=== PATIENT | female | born 1940 | race Two or more races ===

== ENCOUNTER 2018-11-21 13:22 | Inpatient (IN) | payer MEDICARE, BC ==
[~2018-11-21] VITALS: Ht 152.4 cm; Wt 68.6 kg
[~2018-11-21 13:22] MED LIST: HYDR-3326 PO; LEVO100T PO; MEMA1CAP3 PO; OMEG1CAP PO
[2018-11-21] MEDS ORDERED: LEVO75TA PO (13:41)
[2018-11-21] MEDS ORDERED: IV NORMAL SALINE 1000 ML BAG IV ONE ×2 (13:45)
[2018-11-21 13:51] LABS: BASOPHILS # (AUTO) 0.1 K/uL (0.0-8.0); BASOPHILS % (AUTO) 0.4 % (0.0-2.0); HEMOGLOBIN 15.8 g/dL (10.9-14.3); LYMPHOCYTES # (AUTO) 0.5 K/uL (20.0-40.0); LYMPHOCYTES % (AUTO) 2.2 % (20.5-51.5); MEAN CORPUSCULAR HEMOGLOBIN 28.8 uug (24.7-32.8); MEAN CORPUSCULAR HGB CONC 34 g/dL (32.3-35.6); MEAN CORPUSCULAR VOLUME 85.6 fL (75.5-95.3); MONOCYTES # (AUTO) 0.7 K/uL (2.0-10.0); MONOCYTES % (AUTO) 2.9 % (0.0-11.0); NEUTROPHILS # (AUTO) 23.5 K/uL (1.8-8.9); NEUTROPHILS % (AUTO) 94.5 % (38.5-71.5); PLATELET COUNT (AUTO) 176 K/uL (179-408); RED BLOOD CELL COUNT(AUTO) 5.49 MIL/uL (3.63-4.92); WHITE BLOOD COUNT (AUTO) 24.9 K/uL (3.8-11.8)
[2018-11-21 14:00] LABS: CARBON DIOXIDE 23 mmol/L (21-32); CHLORIDE 105 mmol/L (98-107); CREATININE 0.9 mg/dL (0.6-1.3); GLUCOSE 190 mg/dL (74-106); POTASSIUM 3.2 mmol/L (3.5-5.1); UREA NITROGEN, BLOOD 18 mg/dL (7-18)
[2018-11-21 14:05] LABS: ALANINE AMINOTRANSFERASE 29 U/L (14-59); ALKALINE PHOSPHATASE 76 U/L (50-136); ASPARTATE AMINOTRANSFERASE 30 U/L (15-37); BILIRUBIN,DIRECT 0.3 mg/dL (0.0-0.2); BILIRUBIN,TOTAL 1.5 mg/dL (0.2-1.0); TOTAL PROTEIN, SERUM 7.3 g/dL (6.4-8.2)
[2018-11-21 14:06] LABS: *BILIRUBIN,URIN 1+ (NEGATIVE); *CLARITY,URINE CLEAR (CLEAR); *COLOR,URINE DARK YELLOW (YELLOW); *KETONES,URINE 2+ (NEGATIVE); *UROBILINOGEN,URINE 0.2 E.U./dl (NORMAL); LEUKOCYTE ESTERASE ,URINE NEGATIVE (NEGATIVE); NITRITE, URINE POSITIVE (NEGATIVE); PH,URINE 5.5 (5.0-8.0); UGLUCOSE NEGATIVE (NEGATIVE)
[2018-11-21 14:07] LABS: *BLOOD, URINE TRACE LYSED (NEGATIVE)
--- NOTE | 2018-11-21 14:07 | NUR ---
IV inserted, grover catheter inserted and vitals recorded. Patient responsive to painful stimuli. Patient being taken to CT at this time.
[2018-11-21 14:13] LABS: BACTERIA,URINE MODERATE /HPF (NONE SEEN); MUCUS,URINE FEW /LPF (0-FEW); SQUAMOUS EPITHELIAL CELL,UR FEW /HPF (NONE SEEN); WBC,URINE 0-3 /HPF (0-3)
[2018-11-21 14:14] LABS: URINE AMORPHOUS URATE FEW /HPF
[2018-11-21] MEDS ORDERED: CEFTRIAXONE 1 G in IV DEXTROSE 5% 50 ML IV ONE (14:15)
--- NOTE | 2018-11-21 14:19 | NUR ---
Lactic acid report received and Dr. rolon. Critical troponing received by Md. Will continue with care plan
[2018-11-21] MEDS ORDERED: CEFTRIAXONE 1 G VIAL ONE (14:26)
[2018-11-21 14:30] LABS: THYROID STIMULATING HORMONE 1.005 mIU/mL (0.358-3.740)
[2018-11-21] MEDS ORDERED: QUET50TA PO (14:41)
[2018-11-21] MEDS ORDERED: CHOL200078 PO (14:41)
[2018-11-21] MEDS ORDERED: ASPIRIN 300 MG RECTAL SUPP RC ONE ×2 (14:45→14:47)
--- NOTE | 2018-11-21 14:50 | NUR ---
At this time patient noted to be seizing, immediately notifed and verbal orders for ativen 1mg ivp given as orders. Pt's family at bedside.
[2018-11-21] MEDS ORDERED: LORAZEPAM 2 MG/1 ML VIAL ONE (14:56)
[2018-11-21] MEDS ORDERED: PIPERACILLIN SODIUM/TAZOBACTAM 3.375 G in IV DEXTROSE 5% 50 ML IV ONE (15:00)
[2018-11-21] MEDS ORDERED: LORAZEPAM 2 MG/1 ML VIAL IV ONE (15:00)
--- NOTE | 2018-11-21 15:00 | NUR ---
hr 67, 100% saturation 2L. sbp 147/50
--- NOTE | 2018-11-21 15:01 | NUR ---
A call to [employer]. Message to Dr. Sierra on behalf of Dr. Obrien.
[2018-11-21] MEDS ORDERED: PIPERACILLIN/TAZOBACTAM/D5W 50 ML IV ONE (15:14)
--- NOTE | 2018-11-21 15:26 | NUR ---
2nd call for BDA message left.
--- NOTE | 2018-11-21 15:32 | NUR ---
HR 89, sat 99% 2L nc, rr18,115/71.
--- NOTE | 2018-11-21 15:57 | NUR ---
Third call made to [facility] group for admission.
--- NOTE | 2018-11-21 16:12 | NUR ---
a call back from [employer] group and DR. Obrien endorse care to Dr. Baldwin.
[2018-11-21] MEDS ORDERED: IV NS 1000 ML 1,000 ML IV PRN (16:13)
[2018-11-21] MEDS ORDERED: ONDANSETRON 4 MG/2 ML VIAL IV PRN (16:15)
[2018-11-21] MEDS ORDERED: ACETAMINOPHEN 325 MG TABLET PO PRN (16:15)
[2018-11-21] MEDS ORDERED: MAGNESIUM HYDROXIDE 30 ML LIQUID UDC PO PRN (16:15)
[2018-11-21] MEDS ORDERED: PIPERACILLIN SODIUM/TAZOBACTAM 4.5 G in IV DEXTROSE 5% 50 ML IV SCH (16:15)
[2018-11-21] MEDS ORDERED: LEVETIRACETAM IV 1,000 MG in IV DEXTROSE 5% 100 ML IV ONE (16:15)
--- NOTE | 2018-11-21 16:24 | NUR ---
report called to Charge nurse Trent. Patient will be transferred to [facility].
--- NOTE | 2018-11-21 16:35 | NUR ---
Patient taken up to room 304 via gurney, vitals stable hr 75, saturation of 97% on 2LNC, sbp of 119/70. grover catheter to gravity, Iv line to RAC patent and infusing with 1L NS to be completed and by floor nurse also endorse reassessment for sepsis. Since ER MD wanted fluids to run slowly.
--- NOTE | 2018-11-21 17:00 | NUR ---
Pt received from ER.Pt remains responsive to stimuli.No s/s of pain,discomfort noted.No seizure activity noted.Spoke with regarding elevated troponin,lactic acid.No new orders .Will continue to monitor.
[2018-11-21 17:03] VITALS: BP 112/58
--- NOTE | 2018-11-21 19:34 | NUR ---
Spoke with regarding Keppra 1gm order from ER.New orders received .
--- NOTE | 2018-11-21 19:45 | NUR ---
Received pt resting in bed, aphasic, withdraws to painful stimuli. Eyes reactive to light. Family members at bedside. Pt on 2L NC saturating at 98%. No acute distress noted. Pt has episodes of hyperventilation. Tele monitor noted to be SR with HR 68. F/C in place. IV intact and patent running NS at 75cc/hr. Assessment completed. Aspiration and seizure precautions in place. Continue to monitor.
[2018-11-21 19:49] VITALS: BP 129/51
--- NOTE | 2018-11-21 20:00 | NUR ---
KEPRRA IV given.
--- NOTE | 2018-11-21 20:00 | NUR ---
Dr Ewing came to see and evaluate pt. Full report given. MD discussed plan of care with family members, family members verbalized understanding. New orders received.
--- NOTE | 2018-11-21 20:30 | NUR ---
Pt Temp 100.7 axillary at this time. Removed thick blanket and placed thin blanket over lower extremities. Will recheck temp.
[2018-11-21] MEDS: IV NS 1000 ML 1,000 ML IV PRN ×2 (21:40→23:09)
--- NOTE | 2018-11-21 21:40 | NUR ---
Pt temp now 98.2 F axillary. Will continue to monitor VS.
--- NOTE | 2018-11-21 22:00 | NUR ---
PICC LINE RN at bedside.
[2018-11-21] MEDS ORDERED: HEPARIN SODIUM,PORCINE 10,000 UNITS/10 ML VIAL IVP ONE (22:30)
[2018-11-21] MEDS ORDERED: HEPARIN SODIUM,PORCINE 5,000 UNITS/ML VIAL ONE (22:44)
[2018-11-21] MEDS: PIPERACILLIN/TAZOBACTAM/D5W 3.375 G in PREMIXED 1 EACH IV SCH (22:51)
[2018-11-21] MEDS: HEPARIN/D5W DRIP 500 ML IV PRN (23:01)
[2018-11-22] VITALS (7 sets, daily range): BP systolic 123–146; BP diastolic 42–71
[2018-11-22] MEDS: PIPERACILLIN/TAZOBACTAM/D5W 3.375 G in PREMIXED 1 EACH IV SCH ×3 (06:01→21:06)
[2018-11-22 06:03] LABS: BASOPHILS % (AUTO) 0.2 % (0.0-2.0); HEMATOCRIT 39.1 % (31.2-41.9); HEMOGLOBIN 13.7 g/dL (10.9-14.3); LYMPHOCYTES # (AUTO) 0.9 K/uL (20.0-40.0); LYMPHOCYTES % (AUTO) 4.2 % (20.5-51.5); MEAN CORPUSCULAR HEMOGLOBIN 29.4 uug (24.7-32.8); MEAN CORPUSCULAR HGB CONC 35 g/dL (32.3-35.6); MEAN CORPUSCULAR VOLUME 84.1 fL (75.5-95.3); MONOCYTES # (AUTO) 1.2 K/uL (2.0-10.0); MONOCYTES % (AUTO) 6.1 % (0.0-11.0); NEUTROPHILS % (AUTO) 89.5 % (38.5-71.5); PLATELET COUNT (AUTO) 114 K/uL (179-408); RED BLOOD CELL COUNT(AUTO) 4.65 MIL/uL (3.63-4.92); WHITE BLOOD COUNT (AUTO) 20.1 K/uL (3.8-11.8)
--- NOTE | 2018-11-22 06:05 | NUR ---
Pt slept well in between care. Pt maintains to be unarousable to name and sound, continues to withdraw from painful stimuli. Eyes reactive to light. Pt VSS, afebrile during the shift. Pt kept clean and dry. GAURAV PICC line and right AC 20 g intact and patent. Aspiration and seizure precautions maintained at all times. Caregiver remains at bedside. Continue to monitor.
[2018-11-22 06:10] LABS: ALANINE AMINOTRANSFERASE 21 U/L (14-59); ALKALINE PHOSPHATASE 62 U/L (50-136); ASPARTATE AMINOTRANSFERASE 29 U/L (15-37); BILIRUBIN,TOTAL 1.1 mg/dL (0.2-1.0); CARBON DIOXIDE 25 mmol/L (21-32); CHLORIDE 110 mmol/L (98-107); CHOLESTEROL 159 mg/dL (<200); CREATININE 0.8 mg/dL (0.6-1.3); GLUCOSE 143 mg/dL (74-106); HDL CHOLESTEROL 66 mg/dL (40-60); MAGNESIUM 1.7 mg/dL (1.8-2.4); PHOSPHOROUS 3.2 mg/dL (2.5-4.9); POTASSIUM 3.1 mmol/L (3.5-5.1); TOTAL PROTEIN, SERUM 5.9 g/dL (6.4-8.2); TRIGLYCERIDES 89 MG/DL (30-150); UREA NITROGEN, BLOOD 24 mg/dL (7-18)
--- NOTE | 2018-11-22 06:54 | NUR ---
Caregiver (NORAH signs hospital visitor extended agreement. Discussed and reviewed terms. Addendum: 11/22/18 at 0656 by JESUS THOMPSON RN WRONG TIME DOCUMENTED. NOTE WAS FOR 11/21/18 @ 2029.
[2018-11-22] MEDS: IV NS 1000 ML 1,000 ML IV PRN ×2 (07:51→21:06)
--- NOTE | 2018-11-22 08:00 | NUR ---
Pt non verbal. Pt responds to pain stimuli. pupils reacts to light brisky but pt unable follow lights with eyes. IV on right brachial intact and PICC line with double lumen intact on left arm both intact and flushing well with NS. Tele SNR. Spoke with mara OTERO got advance directive and want DNR status for patient. Showed to DR gutierrez and ok with DNR status. Awaiting for NEURO eval and Butter Melter eval per DR gutierrez.
[2018-11-22] MEDS ORDERED: LEVETIRACETAM IV 500 MG in IV DEXTROSE 5% 100 ML IV SCH (09:15)
[2018-11-22] MEDS ORDERED: LORAZEPAM 2 MG/1 ML VIAL IV PRN (09:30)
[2018-11-22] MEDS: LEVETIRACETAM IV 500 MG in IV DEXTROSE 5% 100 ML IV SCH ×2 (10:30→20:10)
--- NOTE | 2018-11-22 11:00 | NUR ---
MARIELY SHETH for neuro saw patient and quality assistant DR hernandez. new orders received and carried out.
[2018-11-22] MEDS ORDERED: QUET100T PO (14:21)
--- NOTE | 2018-11-22 16:00 | NUR ---
Follow up call made re: CXR done in am w/o any result. Tech to f/u with radiologist.
[2018-11-22] MEDS: POTASSIUM CHLORIDE 50 ML IV SCH ×4 (16:46→19:59)
[2018-11-22] MEDS: MAGNESIUM SULFATE/D5W 100 ML IV SCH ×2 (16:46→17:43)
--- NOTE | 2018-11-22 18:40 | NUR ---
EEG, CT head, ECHO all done. Pt tolerated test. Pt remains unchanged from am. PT still lethargic and only responds to painful stimuli. Call light is within reach.
--- NOTE | 2018-11-22 20:00 | NUR ---
RECEIVED PATIENT LYING IN BED. APPEARS WEAK AND LETHARGIC. NON-VERBALLY BUT OPENS HER EYES BRIEFLY TO TACTILE STIMULI. ON O2 AT 2LPM VIA NC IN PLACE. O2 SAT AT 95%. HOB ELEVATED. NO SINS OR SYMPTOMS OF PAIN OR SOB NOTED AT THIS TIME. SEIZURE PRECAUTION OBSERVED. PICC LINE ON LEFT UPPER ARM INTACT AND PATENT. PERIPHERAL IV ON RIGHT AC INTACT AND PATENT. TURN AND REPOSITION FOR COMFORT. CONTINUE TO MONITOR. DPOA AT BEDSIDE.
[2018-11-22] MEDS: ACETAMINOPHEN 650 MG SUPP.RECT RC PRN (20:35)
--- NOTE | 2018-11-22 20:35 | NUR ---
PATIENT WITH TEMP OF 100.5 AXILLARY. COOLING MEASURE PROVIDED. TYLENOL 650MG PER RECTAL GIVEN PER ORDER FOR FEVER. CONTINUE TO MONITOR.
--- NOTE | 2018-11-22 21:35 | NUR ---
TEMP DOWN TO 99.4 AXILLARY. CONTINUE WITH COOLING MEASURES. PATIENT APPEARS COMFORTABLE IN BED. IN NO ACUTE DISTRESS. CONTINUE TO MONITOR.
[2018-11-22] MEDS: METOPROLOL TARTRATE 25 MG TABLET PO SCH (21:42)
[2018-11-23] VITALS (9 sets, daily range): BP systolic 112–146; BP diastolic 46–63
--- NOTE | 2018-11-23 | NUR ---
PATIENT APPEARS COMFORTABLE IN BED. IN NO ACUTE DISTRESS. ON O2 AT 2LPM/MIN VIA NC. O2 SAT REMAINS AT 95%/ NSR ON TELE AT 65/MIN. TURN AND REPOSITION FOR COMFORT. SEIZURE PRECAUTION MAINTAINED. CONTINUE TO MONITOR.
[2018-11-23] MEDS ORDERED: HEPARIN/D5W DRIP 500 ML ONE (01:47)
[2018-11-23] MEDS: HEPARIN/D5W DRIP 500 ML IV PRN (01:50)
[2018-11-23] MEDS: PIPERACILLIN/TAZOBACTAM/D5W 3.375 G in PREMIXED 1 EACH IV SCH ×2 (05:04→14:34)
[2018-11-23 06:07] LABS: CARBON DIOXIDE 24 mmol/L (21-32); CHLORIDE 112 mmol/L (98-107); CREATININE 0.6 mg/dL (0.6-1.3); GLUCOSE 133 mg/dL (74-106); MAGNESIUM 2.2 mg/dL (1.8-2.4); POTASSIUM 3.5 mmol/L (3.5-5.1); UREA NITROGEN, BLOOD 19 mg/dL (7-18)
--- NOTE | 2018-11-23 06:10 | NUR ---
NON-VERBALLY BUT OPENS HER EYES BRIEFLY TO TACTILE STIMULI. AFEBRILE. NO SIGNS OR SYMPTOMS OF PAIN OR SOB NOTED. ON O2 AT 2LPM VIA NC IN PLACE. O2 SAT AT 97%. HOB KEPT ELEVATED. NO SEIZURE EPISODE NOTED. SEIZURE PRECAUTION MAINTAINED. PICC LINE ON LEFT UPPER ARM INTACT AND PATENT. PERIPHERAL IV ON RIGHT AC REMAINS INTACT AND PATENT. NO ADVERSE REACTION NOTED FROM IV ABX. NSR, SINUS ZOYA ON TELE AT 68/MIN. FLANAGAN CATHETER INTACT AND DRAINING VIA GRAVITY. URINE BRENDA WITH COLOR WITH SEDIMENTS NOTED. TURN AND REPOSITION FOR COMFORT. SAFETY MEASURE MAINTAINED. PRIVATE CAREGIVER ON BEDSIDE.
--- NOTE | 2018-11-23 07:30 | NUR ---
Morning rounds done Heparin drip running in 19cc/hr. PTT blood drawn. LE's edema +1. at bedside. Pt remains lethargic. Non Verbal. Responds to pain stimuli. Call light is within reach.
--- NOTE | 2018-11-23 07:55 | NUR ---
Heparin taken out by hs shift.
[2018-11-23] MEDS: METOPROLOL TARTRATE 25 MG TABLET PO SCH ×2 (08:26→20:53)
[2018-11-23] MEDS: LEVETIRACETAM IV 500 MG in IV DEXTROSE 5% 100 ML IV SCH ×3 (08:45→20:32)
--- NOTE | 2018-11-23 08:57 | NUR ---
Sukhdeep OTERO refused to have Keppra given to pt. Discussed with risk and benefits of medications. continues to refuse medication, KEPPRA, until he speaks with prescribing DR gutierrez and nuerologist.
[2018-11-23] MEDS ORDERED: ASPIRIN EC 81 MG TABLET.DR PO SCH (09:00)
[2018-11-23 09:32] LABS: EOSINOPHILS # (AUTO) 0.1 K/uL (0.0-0.7)
[2018-11-23 10:05] LABS: BASOPHILS % (AUTO) 0.2 % (0.0-2.0); EOSINOPHILS % (AUTO) 0.6 % (0.0-7.0); HEMATOCRIT 35.4 % (31.2-41.9); LYMPHOCYTES % (AUTO) 8.9 % (20.5-51.5); MEAN CORPUSCULAR HEMOGLOBIN 29.4 uug (24.7-32.8); MEAN CORPUSCULAR HGB CONC 34 g/dL (32.3-35.6); MEAN CORPUSCULAR VOLUME 86.5 fL (75.5-95.3); MONOCYTES # (AUTO) 0.8 K/uL (2.0-10.0); MONOCYTES % (AUTO) 6.7 % (0.0-11.0); NEUTROPHILS # (AUTO) 9.6 K/uL (1.8-8.9); NEUTROPHILS % (AUTO) 83.6 % (38.5-71.5); PLATELET COUNT (AUTO) 91 K/uL (179-408); RED BLOOD CELL COUNT(AUTO) 4.09 MIL/uL (3.63-4.92); WHITE BLOOD COUNT (AUTO) 11.5 K/uL (3.8-11.8)
[2018-11-23 10:44] LABS: BAND % (MANUAL) 3 % (0-10); EOSINOPHILS % (MANUAL) 1 % (0-8); LYMPHOCYTES % (MANUAL) 11 % (20-40); MONOCYTES % (MANUAL) 3 % (2-10); MYELOCYTES % 1 % (0-0); NEUTROPHILS % (MANUAL) 81 % (42-75)
[2018-11-23] MEDS: IV NS 1000 ML 1,000 ML IV PRN ×2 (11:23→23:10)
[2018-11-23] MEDS: ACETAMINOPHEN 650 MG SUPP.RECT RC PRN (15:14)
--- NOTE | 2018-11-23 15:30 | NUR ---
Notified Dr Sierra of elevated temp 101.4 ordered blood culture x 2. Tylenol given cooling measures done. Placed call to ID Dr harvey group spoke and left message with [facility] department secretary [phone] for ID EVAL request of DR SIERRA. Will monitor temp.
--- NOTE | 2018-11-23 19:30 | NUR ---
RECEIVED PATIENT LYING IN BED. ON O2 AT 2LPM VIA NASAL CANNULA. BREATHING IS EVEN AND UNLABORED. NO ADVENTITIOUS BREATH SOUNDS HEARD UPON AUSCULTATION. APPEARS WEAK AND LETHARGIC. NON-VERBALLY BUT OPENS HER EYES BRIEFLY TO TACTILE STIMULI. PERLAA. HOB IS ELEVATED. NO SIGNS OR SYMPTOMS OF ANY ACUTE DISTRESS, PAIN OR SOB NOTED. SEIZURE PRECAUTIONS OBSERVED. PICC LINE ON LEFT UPPER ARM INTACT AND PATENT. PERIPHERAL IV ON RIGHT AC INTACT AND PATENT. PATIENT'S DPOA, AND FRIEND/CAREGIVER AT BEDSIDE.
--- NOTE | 2018-11-23 20:03 | NUR ---
CLINICAL PHARMACY NOTE:VANCOMYCIN DOSING Request for vancomycin dosing on 78 y/o female 152.4cm 67.13 kg for sepsis Temp 101.4 BUN 19 Scr 0.6 WBC 11.5 bands 3 also on Zosyn Start vancomycin 1gm IVPB [id number] estimate trough 15. Will order trough level prior to 4th dose. Will continue to monitor
[2018-11-23] MEDS: PIPERACILLIN SODIUM/TAZOBACTAM 3.375 G in IV DEXTROSE 5% 50 ML IV SCH (20:44)
[2018-11-23] MEDS: VANCOMYCIN IV 1 G in PREMIXED 0 EACH IV SCH (20:44)
--- NOTE | 2018-11-23 21:00 | NUR ---
PATIENT'S FAMILY REMAINS AT BEDSIDE. KEPPRA IV CONTINUED TO BE REFUSED. ALL OTHER MEDICATIONS GIVEN VIA IV. TOLERATING WELL. NO SIGNS OF ADVERSE REACTIONS FROM ATB. UNABLE TO GIVE METOPROLOL PATIENT IS NOT FULLY AWAKE, BLOOD PRESSURE AND HEART RATE REMAINS STABLE AT THIS TIME. WILL CONTINUE [facility] MONITORING.
[2018-11-24] MEDS: PIPERACILLIN SODIUM/TAZOBACTAM 3.375 G in IV DEXTROSE 5% 50 ML IV SCH ×3 (05:53→21:58)
[2018-11-24 06:18] LABS: CARBON DIOXIDE 24 mmol/L (21-32); CHLORIDE 109 mmol/L (98-107); CREATININE 0.5 mg/dL (0.6-1.3); GLUCOSE 101 mg/dL (74-106); MAGNESIUM 1.9 mg/dL (1.8-2.4); PHOSPHOROUS 2.4 mg/dL (2.5-4.9); UREA NITROGEN, BLOOD 12 mg/dL (7-18)
[2018-11-24 06:30] LABS: BASOPHILS % (AUTO) 0.2 % (0.0-2.0); EOSINOPHILS # (AUTO) 0.1 K/uL (0.0-0.7); EOSINOPHILS % (AUTO) 1.4 % (0.0-7.0); HEMATOCRIT 32.8 % (31.2-41.9); HEMOGLOBIN 11.3 g/dL (10.9-14.3); LYMPHOCYTES # (AUTO) 0.9 K/uL (20.0-40.0); LYMPHOCYTES % (AUTO) 11.4 % (20.5-51.5); MEAN CORPUSCULAR HEMOGLOBIN 29.7 uug (24.7-32.8); MEAN CORPUSCULAR HGB CONC 35 g/dL (32.3-35.6); MEAN CORPUSCULAR VOLUME 85.9 fL (75.5-95.3); MONOCYTES # (AUTO) 0.6 K/uL (2.0-10.0); MONOCYTES % (AUTO) 7.5 % (0.0-11.0); NEUTROPHILS # (AUTO) 6.6 K/uL (1.8-8.9); NEUTROPHILS % (AUTO) 79.5 % (38.5-71.5); PLATELET COUNT (AUTO) 95 K/uL (179-408); RED BLOOD CELL COUNT(AUTO) 3.81 MIL/uL (3.63-4.92); WHITE BLOOD COUNT (AUTO) 8.3 K/uL (3.8-11.8)
[2018-11-24 06:55] LABS: POTASSIUM 2.8 mmol/L (3.5-5.1)
[2018-11-24 07:00] VITALS: BP 129/68
[2018-11-24 07:14] LABS: BAND % (MANUAL) 2 % (0-10); EOSINOPHILS % (MANUAL) 2 % (0-8); LYMPHOCYTES % (MANUAL) 6 % (20-40); MONOCYTES % (MANUAL) 6 % (2-10); NEUTROPHILS % (MANUAL) 84 % (42-75)
--- NOTE | 2018-11-24 07:30 | NUR ---
PATIENT REMAINED LETHARGIC, ON AND OFF AWAKE, MINIMALLY RESPONSIVE. NON VERBAL. PROPER TURNING DONE EVERY 2 HOURS. INCONTINENCE CARE PROVIDED . NOTED WITH 2 BOWEL MOVEMENTS. DAUGHTER AT BEDSIDE. POTASSIUM 2.8, DR. MARIE ORDERED REPLACEMENT. ENDORSED TO NURSE KERR.
--- NOTE | 2018-11-24 08:00 | NUR ---
PATIENT REMAINS NON-RESPONSIVE TO STIMULI WITH BOTH EYES HALF OPEN AT ALL TIMES, V/S WNL, SR ON MONITOR. CLOSELY MONITORED FOR SEIZURE.
[2018-11-24] MEDS: POTASSIUM CHLORIDE 50 ML IV SCH ×4 (08:24→11:24)
[2018-11-24] MEDS: LEVETIRACETAM IV 500 MG in IV DEXTROSE 5% 100 ML IV SCH (08:30)
[2018-11-24] MEDS: METOPROLOL TARTRATE 25 MG TABLET PO SCH ×2 (08:31→21:00)
[2018-11-24] MEDS: IV NS 1000 ML 1,000 ML IV PRN ×2 (08:38→17:17)
[2018-11-24] MEDS: ASPIRIN EC 81 MG TABLET.DR PO SCH (09:00)
--- NOTE | 2018-11-24 09:00 | NUR ---
IN CONTINUE TO REFUSE IV KEPPRA IN SPITE OF EXPLAINING THE SIDE EFFECTS AND ADVANTAGE FOR PATIENT WITH SEIZURE. AWAITING NEUROLOGIST DECISION.
--- NOTE | 2018-11-24 09:41 | NUR ---
CLINICAL PHARMACY NOTE:VANCOMYCIN DOSING S To continue vancomycin dosing on 78 y/o female for sepsis O Temp 98.5 BUN 12 Scr 0.5 WBC 8.3 Plan Will continue same dose of vancomycin 1gm IVPB q24 for today. 2nd dose today at 1999 . Will order trough level prior to 4th dose (not yet ordered). Will monitor renal function & adjust the dose if needed. Will continue to monitor
[2018-11-24] MEDS ORDERED: POTASSIUM CHLORIDE 50 ML IV SCH (10:15)
--- NOTE | 2018-11-24 10:43 | NUR ---
SEEN BY MULE PACKER HOSPITALIST AWARE OF REFUSING KEPPRA. SEE NOTES
[2018-11-24 11:10] VITALS: BP 109/55
[2018-11-24] MEDS: DONEPEZIL 10 MG TABLET PO SCH (11:15)
[2018-11-24] MEDS: MEMANTINE HCL 10 MG TABLET PO SCH ×2 (11:15→21:00)
[2018-11-24] MEDS ORDERED: SODIUM PHOSPHATE MM 15 MM in IV DEXTROSE 5% 250 ML IV ONE (15:30)
--- NOTE | 2018-11-24 16:00 | NUR ---
SEEN BY DIP TANKER NEURO HAD A LENGTHY TALK WITH REGARDING THE IMPORTANCE OF IV KEPPRA. CONTINUE TO REFUSE KEPPRA FOR PATIENT. PATIENT CLOSELY MONITORED NO SEIZURE DURING THE SHIFT. SR ON MONITOR
[2018-11-24 16:32] VITALS: BP 138/54
--- NOTE | 2018-11-24 18:17 | NUR ---
NOTIFIED JUAN MANUEL PATRICK ABOUT 1600 K=3.4 AND SAID WILL RECHECK K IN AM
--- NOTE | 2018-11-24 19:30 | NUR ---
Report received. Patient obtunded. Doesn't open eyes to name calls, with facial grimacing and mild withdrawal to pain. Extremities rigid and stiff. R arm over her chest all the times; contracted. O2 @ 2 L NC. Respirations regular non labored. Assessment done; see flow sheet for details. Addendum: 11/25/18 at 0435 by HERVE HEARN RN Amended: Links added. Addendum: 11/25/18 at 0437 by HERVE HEARN RN Amended: Links added.
[2018-11-24] MEDS: VANCOMYCIN IV 1 G in PREMIXED 0 EACH IV SCH (19:56)
[2018-11-24 20:00] VITALS: BP 142/79
[2018-11-24 20:06] VITALS: BP 142/79
[2018-11-24] MEDS: Z GUARD REMEDY PASTE 57 GM TUBE TOP PRN (21:30)
[2018-11-25] VITALS (7 sets, daily range): BP systolic 132–169; BP diastolic 46–102
--- NOTE | 2018-11-25 | NUR ---
Daughter at bedside; updated of condition. Patient incontinent of large soft liquid yellow stools. Bath given; turned and repositioned. No neuro changes. Addendum: 11/25/18 at 0437 by HERVE HEARN RN Amended: Links added.
[2018-11-25] MEDS: IV NS 1000 ML 1,000 ML IV PRN (05:02)
[2018-11-25] MEDS: PIPERACILLIN SODIUM/TAZOBACTAM 3.375 G in IV DEXTROSE 5% 50 ML IV SCH ×3 (05:16→22:45)
[2018-11-25 06:06] LABS: CARBON DIOXIDE 24 mmol/L (21-32); CHLORIDE 107 mmol/L (98-107); CREATININE 0.5 mg/dL (0.6-1.3); GLUCOSE 113 mg/dL (74-106); MAGNESIUM 1.6 mg/dL (1.8-2.4); PHOSPHOROUS 2.8 mg/dL (2.5-4.9); UREA NITROGEN, BLOOD 9 mg/dL (7-18)
[2018-11-25 06:26] LABS: BASOPHILS % (AUTO) 0.2 % (0.0-2.0); EOSINOPHILS # (AUTO) 0.1 K/uL (0.0-0.7); EOSINOPHILS % (AUTO) 1.2 % (0.0-7.0); HEMATOCRIT 33.3 % (31.2-41.9); HEMOGLOBIN 11.8 g/dL (10.9-14.3); LYMPHOCYTES % (AUTO) 9.2 % (20.5-51.5); MEAN CORPUSCULAR HEMOGLOBIN 29.6 uug (24.7-32.8); MEAN CORPUSCULAR HGB CONC 36 g/dL (32.3-35.6); MEAN CORPUSCULAR VOLUME 83.2 fL (75.5-95.3); MONOCYTES # (AUTO) 1.1 K/uL (2.0-10.0); MONOCYTES % (AUTO) 10.4 % (0.0-11.0); NEUTROPHILS # (AUTO) 8.2 K/uL (1.8-8.9); PLATELET COUNT (AUTO) 117 K/uL (179-408); WHITE BLOOD COUNT (AUTO) 10.4 K/uL (3.8-11.8)
[2018-11-25 06:35] LABS: POTASSIUM 2.7 mmol/L (3.5-5.1)
[2018-11-25] MEDS ORDERED: LEVOTHYROXINE SODIUM 75 MCG TABLET PO SCH (07:00)
[2018-11-25] MEDS: POTASSIUM CHLORIDE 50 ML IV SCH ×4 (07:14→10:38)
[2018-11-25] MEDS: MAGNESIUM SULFATE/D5W 100 ML IV SCH ×2 (07:14→08:10)
[2018-11-25] MEDS: Z GUARD REMEDY PASTE 57 GM TUBE TOP PRN (08:10)
[2018-11-25] MEDS: ASPIRIN EC 81 MG TABLET.DR PO SCH (08:11)
[2018-11-25] MEDS: METOPROLOL TARTRATE 25 MG TABLET PO SCH ×2 (08:11→20:29)
[2018-11-25] MEDS: DONEPEZIL 10 MG TABLET PO SCH (08:11)
[2018-11-25] MEDS: MEMANTINE HCL 10 MG TABLET PO SCH ×2 (08:12→20:29)
--- NOTE | 2018-11-25 08:24 | NUR ---
unable to give po meds patient still too lethargic to swallow and unable to follow instruction
[2018-11-25] MEDS ORDERED: Medication Not On Formulary EA (Memantine HCl/Donepezil HCl (Namzaric 28 mg-10 mg Capsul PO SCH (09:00)
[2018-11-25] MEDS: LEVOTHYROXINE SODIUM 100 MCG VIAL IV SCH (10:39)
--- NOTE | 2018-11-25 10:54 | NUR ---
SEEN BY CRITICAL CARE TRANSPORT NURSE George NEWSOME SPOKE WITH REGARDING FURTHER PLAN OF CARE, AGREED MRI BRAIN WITHOUT CONTRAST.
--- NOTE | 2018-11-25 13:30 | NUR ---
TO VALERIA YARBROUGH MRI VIA AMBULANCE VIA ACLS WITH ON BOARD
--- NOTE | 2018-11-25 13:31 | NUR ---
CLINICAL PHARMACY NOTE:VANCOMYCIN DOSING S To continue vancomycin dosing on 78 y/o female for sepsis O Temp 98.5 BUN 9 Scr 0.5 WBC 10.4 Plan Will continue same dose of vancomycin 1gm IVPB q24 for today. 3rd dose today at 1999 . Will order trough level prior to 4th dose (not yet ordered). Will monitor renal function & adjust the dose if needed. Will continue to monitor
--- NOTE | 2018-11-25 15:21 | NUR ---
RECEIVED A CALL FROM DR ADKINS OF MRI RESULT WILL RELAY RESULTS TO NEUROLOGIST ON DUTY
--- NOTE | 2018-11-25 15:40 | NUR ---
NEUROLOGIST TANISHA IN NOTED RESULTS OF MRI BRAIN.
--- NOTE | 2018-11-25 16:00 | NUR ---
DR GARAY AND Danika NEWSOME NP BOTH SPOKE WITH FAMILY ABOUT MRI RESULTS SEE NOTES
--- NOTE | 2018-11-25 17:30 | NUR ---
RECEIVED PATIENT IN BED. ASLEEP, HARD TO AROUSE. MINIMALLY RESPONSIVE TO TACTILE/PAINFUL STIMULI. PUPILS REMAIN REACTIVE. NOTED WITH SLIGHT SWELLING ON L HAND, NON PITTING. CONTINUED ON O2 AT 2LPM, NO SIGNS OF ACUTE DISTRESS. AFEBRILE. PICC LINE ON L UPPER ARM, INTACT AND PATENT, WITH ONGOING IV FLUID OF NS ORDERED. FAMILY AT BEDSIDE, INCLUDING . CONFIRMED IF DR. GARAY RELAYED RESULTS OF MRI WITH THEM AND WHAT THEIR PLANS ARE. SAYS, HE WANTS TO GET A SECOND OPINION. FAMILY APPEARS TO BE HOPEFUL THAT PATIENT WILL RECOVER. EXPLAINED TO THEM THAT SECOND OPINION IS WELCOME. MD CAN GO THROUGH ADMINISTRATION TO HAVE THEIR MD INVOLVED. THEIR MD IS WELCOME TO VISIT, BUT PLAN OF CARE AND RECORDS UNABLE TO BE SHARED UNLESS HE IS PART OF HC TEAM. FAMILY VERBALIZED UNDERSTANDING. PATIENT PLACED ON POSITION OF COMFORT. FLANAGAN CATHETER DRAINING YELLOW URINE. REMOVED CARDIAC MONITORS, PATIENT WILL BE STARTED ON MED SURG MONITORING. Addendum: 11/26/18 at 0119 by ERNESTO ZIEGLER RN CORRECT TIME: 1929
[2018-11-25] MEDS: VANCOMYCIN IV 1 G in PREMIXED 0 EACH IV SCH (20:28)
--- NOTE | 2018-11-25 20:30 | NUR ---
FAMILY'S PHYSICIAN ARRIVED ASKING FOR MEDICAL RECORDS, BUT RE-EXPLAINED PROTOCOLS. REQUESTED TO SPEAK WITH DR. GARAY. UPON CONVERSATION AND VISIT WITH PATIENT, FAMILY'S PHYSICIAN REINFORCED WHAT DR. GARAY HAS PREVIOUSLY EXPLAINED WITH FAMILY. HOSPICE EVALUATION WILL BE DONE IN THE MORNING PLANNED. INTERVENTIONS TO BE CONTINUED UNTIL FAMILY DECIDES ON HOSPICE. AT THIS TIME, PATIENT REMAINS MINIMALLY RESPONSIVE TO NON-RESPONSIVE, PUPILS REMAIN REACTIVE TO LIGHT BUT SLUGGISH. ALL DUE IV MEDICATIONS GIVEN. UNABLE TO GIVE PO MEDICATIONS DUE BECAUSE PATIENT IS UNABLE TO WAKE UP AND SWALLOW. ASPIRATIONS PRECAUTIONS MAINTAINED. ORAL CARE PROVIDED. PATIENT TURNED ON L LATERAL SIDE. WILL CONTINUE TO MONITOR.
[2018-11-26 04:57] VITALS: BP 166/63
--- NOTE | 2018-11-26 04:58 | NUR ---
Patient remains asleep at this time. appears comfortable. Turned to R lateral side. Daughter is at bedside. Patient noted with temp of 99.5 cooling measures provided, currently at 99.1. Bp @ 166/73. After repositioning and cleaning patient, rechecked, BP: 145/89. Kept clean and dry. Will continue to monitor
[2018-11-26] MEDS: PIPERACILLIN SODIUM/TAZOBACTAM 3.375 G in IV DEXTROSE 5% 50 ML IV SCH ×3 (05:30→22:25)
[2018-11-26 05:58] LABS: BASOPHILS % (AUTO) 0.1 % (0.0-2.0); EOSINOPHILS % (AUTO) 0.2 % (0.0-7.0); HEMATOCRIT 32.1 % (31.2-41.9); HEMOGLOBIN 11.4 g/dL (10.9-14.3); LYMPHOCYTES # (AUTO) 0.7 K/uL (20.0-40.0); LYMPHOCYTES % (AUTO) 6.3 % (20.5-51.5); MEAN CORPUSCULAR HEMOGLOBIN 29.6 uug (24.7-32.8); MEAN CORPUSCULAR HGB CONC 36 g/dL (32.3-35.6); MEAN CORPUSCULAR VOLUME 83.5 fL (75.5-95.3); MONOCYTES # (AUTO) 1.1 K/uL (2.0-10.0); MONOCYTES % (AUTO) 10.3 % (0.0-11.0); NEUTROPHILS # (AUTO) 8.9 K/uL (1.8-8.9); NEUTROPHILS % (AUTO) 83.1 % (38.5-71.5); PLATELET COUNT (AUTO) 136 K/uL (179-408); RED BLOOD CELL COUNT(AUTO) 3.84 MIL/uL (3.63-4.92); WHITE BLOOD COUNT (AUTO) 10.7 K/uL (3.8-11.8)
[2018-11-26 06:04] LABS: CARBON DIOXIDE 26 mmol/L (21-32); CHLORIDE 106 mmol/L (98-107); CREATININE 0.7 mg/dL (0.6-1.3); GLUCOSE 134 mg/dL (74-106); MAGNESIUM 1.8 mg/dL (1.8-2.4); PHOSPHOROUS 3.6 mg/dL (2.5-4.9); UREA NITROGEN, BLOOD 11 mg/dL (7-18)
[2018-11-26 06:14] LABS: POTASSIUM 2.7 mmol/L (3.5-5.1)
--- NOTE | 2018-11-26 07:10 | NUR ---
RECEIVED PATIENT LAYING IN BED, ASLEEP NOT ALERT. NO DISTRESS NOTED AT THIS TIME. BED IN LOWEST POSITION, SIDE RAILS UP X2. WILL CONTINUE TO MONITOR.
[2018-11-26] MEDS: POTASSIUM CHLORIDE 50 ML IV SCH ×4 (07:44→10:54)
[2018-11-26] MEDS: MEMANTINE HCL 10 MG TABLET PO SCH ×2 (09:00→21:00)
[2018-11-26] MEDS: DONEPEZIL 10 MG TABLET PO SCH (09:00)
[2018-11-26] MEDS: ASPIRIN EC 81 MG TABLET.DR PO SCH (09:00)
[2018-11-26] MEDS: METOPROLOL TARTRATE 25 MG TABLET PO SCH ×2 (09:00→21:00)
[2018-11-26] MEDS: LEVOTHYROXINE SODIUM 100 MCG VIAL IV SCH (09:40)
[2018-11-26 10:29] VITALS: BP 138/58
--- NOTE | 2018-11-26 10:44 | NUR ---
CLINICAL PHARMACY NOTE:VANCOMYCIN DOSING S To continue vancomycin dosing on 78 y/o female for sepsis O Temp 99.1 BUN 11 Scr 0.7 WBC 10.7 Trough pending today at 1930 Plan Will continue same dose of vancomycin 1gm IVPB q24 for today. Trough due tonight at 1930. Will check when available and adjust as needed. Will follow Addendum: 11/26/18 at 2044 by AYANA SALCIDO Trough level @ 19:56 came @ 4.1 (subtherapeutic) recalculated dose as 1000 mg IVPB q12h, with estimated peak of 34.3 and trough of 14.9. Plan to order trough prior to 4th dose on 8/24 AM
[2018-11-26 14:52] VITALS: BP 147/58
--- NOTE | 2018-11-26 15:15 | NUR ---
RECEIVED PATIENT FROM JOCE JAY, PATIENT IN BED RESTING WITH NO S/S OF ACUTE DISTRESS NOTED AT THIS TIME. NO C/O PAIN AT THIS TIME. WILL CONTINUE TO MONITOR.
--- NOTE | 2018-11-26 18:41 | NUR ---
PATIENT IN BED LAYING AND RESTING, , NO S/S OF ACUTE DISTRESS NOTED, NO C/O PAIN AT THIS TIME. PICC LINE INTACT KEPT CLEAN AND DRY AT ALL TIMES. SAFETY AND COMFORT PROVIDED AT ALL TIMES.
--- NOTE | 2018-11-26 19:30 | NUR ---
Received patient in bed asleep, arousable to touch. Patient is nonverbal. Family at bedside. On O2 at 3lpm, saturating at 95%. GAURAV PICC line intact and patent w/ IVF infusing. Safety measures observed. Call light within reach
[2018-11-26 20:00] VITALS: BP 153/59
[2018-11-26] MEDS: VANCOMYCIN IV 1,000 MG in IV DEXTROSE 5% 250 ML IV SCH (21:24)
[2018-11-27] MEDS: IV NS 1000 ML 1,000 ML IV PRN ×2 (00:40→12:15)
[2018-11-27 04:00] VITALS: BP 130/58
[2018-11-27] MEDS: PIPERACILLIN SODIUM/TAZOBACTAM 3.375 G in IV DEXTROSE 5% 50 ML IV SCH ×2 (05:53→13:58)
--- NOTE | 2018-11-27 06:48 | NUR ---
Patient slept through out the night w/ daughter at bedside. No SOB noted, not in distress at this time. GAURAV PICC line intact and patent w/ IVF infusing. Turned and repositioned Q2 for comfort and skin management. Oral care provided. Safety measures observed. Will endorse accordingly
--- NOTE | 2018-11-27 07:32 | NUR ---
Patient in Bed with daughter at bedside. No signs of Respiratory distress noted, IVF infusing well to GAURAV PICCline. No signs of Pain or Discomfort. Will continue to monitor.
[2018-11-27] MEDS: VANCOMYCIN IV 1,000 MG in IV DEXTROSE 5% 250 ML IV SCH (08:08)
[2018-11-27] MEDS: DONEPEZIL 10 MG TABLET PO SCH (09:00)
[2018-11-27] MEDS: MEMANTINE HCL 10 MG TABLET PO SCH ×2 (09:00→21:00)
[2018-11-27] MEDS: METOPROLOL TARTRATE 25 MG TABLET PO SCH ×2 (09:00→21:00)
[2018-11-27] MEDS: LEVOTHYROXINE SODIUM 100 MCG VIAL IV SCH (09:20)
--- NOTE | 2018-11-27 09:41 | NUR ---
CLINICAL PHARMACY NOTE:VANCOMYCIN DOSING S To continue vancomycin dosing on 78 y/o female for sepsis O Temp 97.6 BUN 11 (11/26) Scr 0.7 (11/26) WBC 10.7 (11/26) Trough 11/26 @1955: 4.1 Plan Will continue with rescheduled regimen of vanco 1000 mg IVPB q12h, with estimated peak of 34.3 and trough of 14.9. Trough ordered before 4th scheduled dose, due tomorrow at 0900. Will check trough and adjust as needed. Will follow Addendum: 11/27/18 at 1021 by CHRISTIANO OWEN ADM CORRECTION: TROUGH IS DUE TOMORROW 11/28 @ 0800 (NOT 0900). WILL CHECK WHEN AVAILABLE.
--- NOTE | 2018-11-27 09:52 | NUR ---
Patient was on hospice, however spouse is having second thoughts. [place] to discuss with options for this patient; possible D/C to home with home health. She remains NPO at this time; no current plans for enteral or parenteral nutrition. Will continue to discuss at daily rounds and remain available prn. Addendum: 11/27/18 at [address] Amended: Links added.
--- NOTE | 2018-11-27 10:18 | NUR ---
Seen by Dr. Freeman with Order to Transfer to telemetry d/t patient condition, sarika agreed and made aware.
[2018-11-27 12:00] VITALS: BP 147/47
--- NOTE | 2018-11-27 12:00 | NUR ---
JUAN MANUEL Rondon ordered TPN, family is aware.
[2018-11-27] MEDS ORDERED: TPN/PPN PER PHARMACY IV PRN (15:06)
[2018-11-27 16:00] VITALS: BP 156/49
--- NOTE | 2018-11-27 16:09 | NUR ---
Clinical Pharmacy Note: TPN per Pharmacy Subjective: Pt on hospice however reversed after being admitted for sepsis 2/2 asp PNA, new onset seizures, acute cva and hemorrhage. Pt has history of advanced dementia as well. Per MD, plans for pt are preventative in nature, refused by at this time in hopes of recovery over time. 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 Pt has been NPO x 7 days, per discussion with MD GAVIOTA, RN comfort station supervisor, Rx, with planned discussed and understood by family, TPN will be started for only short term of few days and observed if may improve per 's wishes at this time and refusal of other services. Pt remains DNR/DNI, has PICC line Assistance Representative recommendation: -Recs TPN goal: D10%, AA 4.25% @ 80ml/hr + IL 20% 250ml daily. At goal would provide 1478 kcal and 82gm protein -When TPN initiated, start at 30ml/hr and increase 10ml q2hr as pt tolerated until reach goal rate (or initiation regimen per Pharm D) Objective: Labs: (11/26) Na 142, K 3.4, Cl 106, CO2 26, BUN 11, Scr 0.7, Glucose 134, Ca 7.8 (corrected: 9.0) Alb 2.5, Mg 1.8, Phos 3.6, TG 89, WBC 10.7, temp 98.5 Assessment/Plan: 1) Will start TPN formula (bags #1 +2, #2 projected start ~930 11/28) D10%+AA4.5% at raate of 30ml/hr today, increasing every hr by 10ml/hr with goal rate of 70ml/hr. RN endorsed. Will add 60meq/L Na Acetate, 40meq KCl, 2gm Mg, 15mmol KPhos, 10ml MVI, and 1ml trace elements per day. Will start Intralipid 20% 250ml IVBP per day when available (on order). Next labs due tomorrow am. 2) Patient not currently on any PO/GT medications. Current IV, supp medications continued as ordered 3) Cinthia Rondon NP agreed to start accuchecks q6hr for now to monitor BS 4) D/c'd IVF fluids as replaced with TPN
[2018-11-27] MEDS ORDERED: [UNRECOGNIZED DRUG - OTHER] IV PRN ×14 (16:15→17:00)
[2018-11-27] MEDS ORDERED: SODIUM ACETATE IV PRN ×14 (16:15→17:00)
[2018-11-27] MEDS ORDERED: POTASSIUM CHLORIDE IV PRN ×14 (16:15→17:00)
[2018-11-27] MEDS ORDERED: MAGNESIUM SULFATE IV PRN ×14 (16:15→17:00)
--- NOTE | 2018-11-27 17:00 | NUR ---
Started on TPN as ordered at 30cc/hr for 1st 2 hours and will increase rate of 10cc/hr after 2 hours, until goal rate of 80cc/hr. IVF was held, will check Blood sugar q 6hrs as ordered.
--- NOTE | 2018-11-27 17:19 | NUR ---
Patient sustaining of heart rate 44-48 bpm, JUAN MANUEL Rondon made aware with No new Order.
[2018-11-27] MEDS: BLOOD SUGAR DIAGNOSTIC 1 EACH STRIP VI SCH ×2 (17:50→23:28)
--- NOTE | 2018-11-27 18:48 | NUR ---
Patient in bed with family at bedside. No signs of Distress noted. On nasal canula at 2LPM, No signs of Pain or discomfort. Patient has GAURAV PICC Line, On TPN at 30cc/hr infusing well. Patient sustaining of 44-48bpm, Blood Sugar 133 at 1800, TAX SERVICES PROFESSIONAL Alcon is aware with No New order. Will Endorse to Oncoming Nurse.
--- NOTE | 2018-11-27 19:30 | NUR ---
Received patient asleep in bed, not in any form of acute distress. With oxygen support at 2 lpm via nasal cannula, tolerated. Noted with PICC line on the left upper arm, to ongoing TPN infusion at 40mls/hr, infusing well. Still with grover catheter to urine bag. With air mattress in place. DVT pumps in place. Noted family member present at bedside. Will continue to monitor. Noise and lights subdued.
[2018-11-27 20:35] VITALS: BP 135/39
[2018-11-27 23:59] VITALS: BP 133/36
[2018-11-28] MEDS: BLOOD SUGAR DIAGNOSTIC 1 EACH STRIP VI SCH ×4 (06:11→23:32)
[2018-11-28 06:12] LABS: BASOPHILS % (AUTO) 0.2 % (0.0-2.0); EOSINOPHILS % (AUTO) 0.5 % (0.0-7.0); HEMATOCRIT 28.4 % (31.2-41.9); LYMPHOCYTES # (AUTO) 0.7 K/uL (20.0-40.0); LYMPHOCYTES % (AUTO) 9.5 % (20.5-51.5); MEAN CORPUSCULAR HEMOGLOBIN 29.8 uug (24.7-32.8); MEAN CORPUSCULAR HGB CONC 35 g/dL (32.3-35.6); MEAN CORPUSCULAR VOLUME 84.8 fL (75.5-95.3); MONOCYTES # (AUTO) 0.9 K/uL (2.0-10.0); MONOCYTES % (AUTO) 11.7 % (0.0-11.0); NEUTROPHILS # (AUTO) 6.2 K/uL (1.8-8.9); NEUTROPHILS % (AUTO) 78.1 % (38.5-71.5); PLATELET COUNT (AUTO) 153 K/uL (179-408); RED BLOOD CELL COUNT(AUTO) 3.36 MIL/uL (3.63-4.92); WHITE BLOOD COUNT (AUTO) 7.9 K/uL (3.8-11.8)
--- NOTE | 2018-11-28 06:14 | NUR ---
Patient slept well throughout the night, no acute distress noted. Still with oxygen support at 2lpm via nasal cannula, maintained. Still with ongoing TPN infusion via PICC line at left upper arm now running at goal rate of 80mls/hr. Turned to sides. Attended all needs. Ensured safety and comfort.
[2018-11-28 06:28] LABS: CARBON DIOXIDE 29 mmol/L (21-32); CHLORIDE 109 mmol/L (98-107); CREATININE 0.8 mg/dL (0.6-1.3); GLUCOSE 187 mg/dL (74-106); MAGNESIUM 1.9 mg/dL (1.8-2.4); PHOSPHOROUS 3.1 mg/dL (2.5-4.9); TRIGLYCERIDES 110 MG/DL (30-150); UREA NITROGEN, BLOOD 21 mg/dL (7-18)
[2018-11-28 07:04] LABS: POTASSIUM 2.6 mmol/L (3.5-5.1)
--- NOTE | 2018-11-28 07:15 | NUR ---
Received a call from laboratory regarding critical lab value, potassium is 2.6 - endorsed to morning shift nurse, Benita who states she will report to hospitalist this AM.
--- NOTE | 2018-11-28 07:15 | NUR ---
Received patient in bed with Caregiver at bedside. On Oxygen at 2LPM via Nasal canula, No signs of Distress noted. No signs of Pain or Discomfort. TPN running at 80cc/hr. last Blood Sugar was 166, Will continue to monitor.
--- NOTE | 2018-11-28 07:30 | NUR ---
JUAN MANUEL baum made aware of potassium 2.6, with order pharmacy to replace/dose d/t patient on TPN, called Pharmacy and made aware.
[2018-11-28 08:00] VITALS: BP 137/60
[2018-11-28] MEDS: DONEPEZIL 10 MG TABLET PO SCH (08:37)
[2018-11-28] MEDS: METOPROLOL TARTRATE 25 MG TABLET PO SCH ×2 (08:37→21:00)
[2018-11-28] MEDS: MEMANTINE HCL 10 MG TABLET PO SCH ×2 (08:38→21:00)
[2018-11-28] MEDS: LEVOTHYROXINE SODIUM 100 MCG VIAL IV SCH (08:39)
[2018-11-28] MEDS ORDERED: SODIUM ACETATE IV PRN ×16 (09:30→21:31)
[2018-11-28] MEDS ORDERED: POTASSIUM ACETATE IV PRN ×16 (09:30→21:31)
[2018-11-28] MEDS ORDERED: [UNRECOGNIZED DRUG - OTHER] IV PRN ×16 (09:30→21:31)
[2018-11-28] MEDS ORDERED: POTASSIUM CHLORIDE IV PRN ×16 (09:30→21:31)
[2018-11-28] MEDS: POTASSIUM PHOSPHATE MM 7.5 MMOL in IV DEXTROSE 5% 100 ML IV SCH ×2 (09:57→13:03)
--- NOTE | 2018-11-28 10:15 | NUR ---
Clinical Pharmacy Note: TPN per Pharmacy Subjective: Pt on hospice however reversed after being admitted for sepsis 2/2 asp PNA, new onset seizures, acute cva and hemorrhage. Pt has history of advanced dementia as well. Per MD, plans for pt are preventative in nature, refused by at this time in hopes of recovery over time. 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 Pt has been NPO x 7 days, per discussion with MD GAVIOTA, RN supervisor twisting department, Rx, with planned discussed and understood by family, TPN will be started for only short term of few days and observed if may improve per 's wishes at this time and refusal of other services. Pt remains DNR/DNI, has PICC line Sustainability Manager recommendation: -Recs TPN goal: D10%, AA 4.25% @ 80ml/hr + IL 20% 250ml daily. At goal would provide 1478 kcal and 82gm protein -When TPN initiated, start at 30ml/hr and increase 10ml q2hr as pt tolerated until reach goal rate (or initiation regimen per Pharm D) Objective: Labs: Na 145, K 2.6, Cl 109, CO2 29, BUN 21, Scr 0.8, Glucose 187, Ca 7.9 (corrected: 9.0) Alb 2.0, Mg 1.9, Phos 3.1, TG 110, WBC 7.9, temp 99 Assessment/Plan: 1) Due to new labs: will dc bag #2 & start Bag #3 with TPN formula (bags #3 +4, #3 projected start ~10am 11/28) D10%+AA4.5% at rate of 80ml/hr. Will add 10meq/L Na Acetate, K Acetate 30 meq/L , 10meq/L KCl, 1gm Mg/L, 7.5mmol/L KPhos & only to bag #4 will add 10ml MVI, and 1ml trace elements. Will start Intralipid 20% 250ml IVBP per day today at 1400. Next labs due tomorrow am. 2) Continue accuchecks q6hr & call MD if BS > 300 3) Kphos 15 mmole bolus IV x1 given for low K this am
[2018-11-28 12:00] VITALS: BP 141/59
[2018-11-28] MEDS ORDERED: IV FAT EMULSIONS 20% 250 ML IV ONE (14:00)
[2018-11-28 15:37] VITALS: BP 135/47
[2018-11-28] MEDS ORDERED: DEXTROSE 50% 50 ML DISP.SYRIN IV PRN (15:45)
[2018-11-28] MEDS: INSULIN REGULAR, HUMAN 300 UNIT/3 ML VIAL SQ PRN ×2 (18:01→23:34)
--- NOTE | 2018-11-28 18:27 | NUR ---
Patient in bed, Open eyes. Family at bedside. On Oxygen at 2LPM via Nasal canula, No signs of Distress noted. Saturating at 96%. No signs of Pain or Discomfort. GAURAV PICC line intact. Remains on TPN at 80cc/hr an lipids at 10cc/hr. 1800 Blood Sugar is 155, 2 units of Regular Insulin given as ordered. Repositioned q2hrs and PRN. Will Endorsed to Oncoming Nurse.
--- NOTE | 2018-11-28 19:24 | NUR ---
Received patient awake in bed with eyes open, not in any form of acute distress. With oxygen support at 2 lpm via nasal cannula, tolerated. Noted with PICC line on the left upper arm, to ongoing TPN infusion at 80mls/hr and lipid emulsion at 10mls/hr, infusing well. Still with grover catheter to urine bag. With air mattress in place. DVT pumps in place. Noted family member present at bedside. Will continue to monitor. Noise and lights subdued.
[2018-11-28 20:00] VITALS: BP 135/47
[2018-11-28] MEDS: ACETAMINOPHEN 650 MG SUPP.RECT RC PRN (20:11)
--- NOTE | 2018-11-28 20:30 | NUR ---
Noted elevated temperature, acetaminophen suppository given. Cinthia Rondon NP notified of the febrile episode.
[2018-11-28 23:59] VITALS: BP 118/43
[2018-11-29] MEDS ORDERED: SODIUM ACETATE IV PRN ×14 (01:00→11:30)
[2018-11-29] MEDS ORDERED: POTASSIUM ACETATE IV PRN ×14 (01:00→11:30)
[2018-11-29] MEDS ORDERED: POTASSIUM CHLORIDE IV PRN ×14 (01:00→11:30)
[2018-11-29] MEDS ORDERED: [UNRECOGNIZED DRUG - OTHER] IV PRN ×14 (01:00→11:30)
[2018-11-29 04:24] VITALS: BP 92/50
[2018-11-29] MEDS: BLOOD SUGAR DIAGNOSTIC 1 EACH STRIP VI SCH ×2 (05:37→12:27)
[2018-11-29] MEDS: INSULIN REGULAR, HUMAN 300 UNIT/3 ML VIAL SQ PRN ×2 (05:39→12:30)
[2018-11-29 05:49] LABS: BASOPHILS # (AUTO) 0.1 K/uL (0.0-8.0); BASOPHILS % (AUTO) 0.6 % (0.0-2.0); EOSINOPHILS # (AUTO) 0.1 K/uL (0.0-0.7); EOSINOPHILS % (AUTO) 1.6 % (0.0-7.0); HEMATOCRIT 29.5 % (31.2-41.9); HEMOGLOBIN 10.5 g/dL (10.9-14.3); LYMPHOCYTES # (AUTO) 1.1 K/uL (20.0-40.0); LYMPHOCYTES % (AUTO) 13.5 % (20.5-51.5); MEAN CORPUSCULAR HGB CONC 35 g/dL (32.3-35.6); MEAN CORPUSCULAR VOLUME 84.8 fL (75.5-95.3); MONOCYTES # (AUTO) 0.9 K/uL (2.0-10.0); MONOCYTES % (AUTO) 10.8 % (0.0-11.0); NEUTROPHILS # (AUTO) 6.2 K/uL (1.8-8.9); NEUTROPHILS % (AUTO) 73.5 % (38.5-71.5); PLATELET COUNT (AUTO) 169 K/uL (179-408); RED BLOOD CELL COUNT(AUTO) 3.48 MIL/uL (3.63-4.92); WHITE BLOOD COUNT (AUTO) 8.5 K/uL (3.8-11.8)
[2018-11-29 06:07] LABS: CARBON DIOXIDE 32 mmol/L (21-32); CHLORIDE 107 mmol/L (98-107); CREATININE 0.6 mg/dL (0.6-1.3); GLUCOSE 168 mg/dL (74-106); MAGNESIUM 2.2 mg/dL (1.8-2.4); PHOSPHOROUS 3.2 mg/dL (2.5-4.9); POTASSIUM 3.3 mmol/L (3.5-5.1); UREA NITROGEN, BLOOD 24 mg/dL (7-18)
[2018-11-29] MEDS: MEMANTINE HCL 10 MG TABLET PO SCH (08:33)
[2018-11-29] MEDS: METOPROLOL TARTRATE 25 MG TABLET PO SCH (08:33)
[2018-11-29] MEDS: DONEPEZIL 10 MG TABLET PO SCH (08:33)
[2018-11-29] MEDS: LEVOTHYROXINE SODIUM 100 MCG VIAL IV SCH (08:48)
[2018-11-29] MEDS: ACETAMINOPHEN 650 MG SUPP.RECT RC PRN (08:51)
--- NOTE | 2018-11-29 09:00 | NUR ---
PT NOTED HAVING SEIZURES. PT'S body was very rigid, bit lower lips, loose bm noted, vomited clear gastric fluid with bits of hard phlegm. Ativan given for seizure as ordered. Seizure lasted about 2-3 minutes. Ativan effective seizure stopped. Temp 100.8 tylenol suppository given. Notified YAHIR Rondon of situation. Ordered CT head and CXR stat.
[2018-11-29 09:16] VITALS: BP 152/58
[2018-11-29] MEDS: LEVETIRACETAM IV 500 MG in IV DEXTROSE 5% 100 ML IV SCH ×2 (09:49→20:48)
[2018-11-29] MEDS ORDERED: LEVETIRACETAM IV 1,500 MG in IV DEXTROSE 5% 100 ML IV ONE (10:45)
[2018-11-29] MEDS ORDERED: PIPERACILLIN SODIUM/TAZOBACTAM 3.375 G in IV DEXTROSE 5% 50 ML IV SCH (11:00)
--- NOTE | 2018-11-29 11:00 | NUR ---
CT head result given to Cass Odell spoke with about result of ct head and comfort measure.
[2018-11-29] MEDS: PIPERACILLIN/TAZOBACTAM/D5W 3.375 G in PREMIXED 1 EACH IV SCH ×2 (12:23→21:28)
[2018-11-29 12:52] VITALS: BP 156/88
[2018-11-29] MEDS ORDERED: IV FAT EMULSIONS 20% 250 ML IV ONE ×2 (14:00→21:00)
[2018-11-29] MEDS: MORPHINE SULFATE PF IV DRIP 250 MG in IV DEXTROSE 5% 240 ML IV PRN (14:20)
--- NOTE | 2018-11-29 14:53 | NUR ---
Clinical Pharmacy Note: TPN per Pharmacy Subjective: Pt on hospice however reversed after being admitted for sepsis 2/2 asp PNA, new onset seizures, acute cva and hemorrhage. Pt has history of advanced dementia as well. Per MD, plans for pt are preventative in nature, refused by at this time in hopes of recovery over time. 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 Pt has been NPO x 7 days, per discussion with MD GAVIOTA, RN dairy processing supervisor, Rx, with planned discussed and understood by family, TPN will be started for only short term of few days and observed if may improve per 's wishes at this time and refusal of other services. Pt remains DNR/DNI, has PICC line Software Asset Management Analyst recommendation: -Recs TPN goal: D10%, AA 4.25% @ 80ml/hr + IL 20% 250ml daily. At goal would provide 1478 kcal and 82gm protein -When TPN initiated, start at 30ml/hr and increase 10ml q2hr as pt tolerated until reach goal rate (or initiation regimen per Pharm D) Objective: Labs: Na 144, K 3.3, Cl 107, CO2 32, BUN 24, Scr 0.6, Glucose 168, Ca 7.9 (corrected: 9.1) Alb 2.0 (11/28), Mg 2.2, Phos 3.2, TG 110 (11/28), WBC 8.5, temp 98.7 Assessment/Plan: 1) Will continue with TPN formula (bags #5 + 6, #6 projected start ~0100 11/30) D10%+AA4.5% at rate of 80ml/hr. Will add 10meq/L Na Acetate, K Acetate 30 meq/L , 10meq/L KCl, 7.5mmol/L KPhos & only to bag #6 will add 10ml MVI, and 1ml trace elements. Will continue Intralipid 20% 250ml IVBP per day. Next labs due tomorrow am. 2) Continue accuchecks q6hr & call MD if BS > 300
--- NOTE | 2018-11-29 18:30 | NUR ---
Pt was started on morphine drip running at 2mg/hr. Pt comfortable no moaning and groaning. Pt is in no acute distress.
--- NOTE | 2018-11-29 19:00 | NUR ---
RECEIVED PATIENT ALERT AND AWAKE IN BED. PATIENT IS ON FALL PRECAUTIONS. BED IN LOWEST POSITION, BED LOCKED , BED ALARM ON. PICC LINE IS PATENT AND INTACT. PATIENT IS PLEASANT BUT CONFUSED. WILL CONTINUE TO MONITOR. Addendum: 11/29/18 at 2251 by MARYJO CHOU RN ABOVE CHARTING IS AN ERROR (WRONG PATIENT ) PATIENT RECEIVED IN BED AWAKE. WITH NO SIGNS OF DISTRESS/PAIN A THE MOMENT. PATIENT IS NON VERBAL, USED FLACC SCALE TO DETERMINE THIS.REPOSITIONED PATINET, ASSESSED IV ACCESS, PICC LINE PATENT AND INTACT . FAMILY IS AT BEDSIDE. BED IN LOWEST POSITION, LOCKED AND CALL LIGHT WITHIN REACH. WILL CONTINUE TO MONIOTR.
--- NOTE | 2018-11-29 22:48 | NUR ---
Increased morphine drip to 3mg/hr. No signs of distress noted. Patient is comfortable. Friend is at bedside. Will continue to monitor.
--- NOTE | 2018-11-29 23:33 | NUR ---
Report given to MISTY Marion for continuity of care
[2018-11-30] MEDS: MORPHINE SULFATE PF IV DRIP 250 MG in IV DEXTROSE 5% 240 ML IV PRN ×5 (00:25→06:58)
[2018-11-30] MEDS: PIPERACILLIN/TAZOBACTAM/D5W 3.375 G in PREMIXED 1 EACH IV SCH ×3 (05:56→21:48)
[2018-11-30 06:52] LABS: BASOPHILS % (AUTO) 0.3 % (0.0-2.0); EOSINOPHILS # (AUTO) 0.2 K/uL (0.0-0.7); EOSINOPHILS % (AUTO) 1.2 % (0.0-7.0); HEMATOCRIT 30.3 % (31.2-41.9); HEMOGLOBIN 10.4 g/dL (10.9-14.3); LYMPHOCYTES % (AUTO) 7.9 % (20.5-51.5); MEAN CORPUSCULAR HEMOGLOBIN 29.8 uug (24.7-32.8); MEAN CORPUSCULAR HGB CONC 34 g/dL (32.3-35.6); MEAN CORPUSCULAR VOLUME 87.1 fL (75.5-95.3); MONOCYTES # (AUTO) 0.7 K/uL (2.0-10.0); MONOCYTES % (AUTO) 5.4 % (0.0-11.0); NEUTROPHILS # (AUTO) 11.1 K/uL (1.8-8.9); NEUTROPHILS % (AUTO) 85.2 % (38.5-71.5); PLATELET COUNT (AUTO) 200 K/uL (179-408); RED BLOOD CELL COUNT(AUTO) 3.48 MIL/uL (3.63-4.92)
--- NOTE | 2018-11-30 07:10 | NUR ---
RECEIVED PATIENT LAYING IN BED, NOT ALERT. PATIENT ON MORPHINE DRIP, TPN AND LIPIDS. PATIENTS FAMILY AT BEDSIDE. WILL CONTINUE TO PROVIDE COMFORT MEASURES.
[2018-11-30 07:11] LABS: WHITE BLOOD COUNT (AUTO) 13.1 K/uL (3.8-11.8)
[2018-11-30 07:13] LABS: CARBON DIOXIDE 32 mmol/L (21-32); CHLORIDE 104 mmol/L (98-107); CREATININE 0.7 mg/dL (0.6-1.3); GLUCOSE 149 mg/dL (74-106); MAGNESIUM 1.9 mg/dL (1.8-2.4); PHOSPHOROUS 3.6 mg/dL (2.5-4.9); POTASSIUM 3.4 mmol/L (3.5-5.1); UREA NITROGEN, BLOOD 24 mg/dL (7-18)
--- NOTE | 2018-11-30 07:20 | NUR ---
patient left sleeping, morphine titrated up to 8mg/ml. pupils are non reactive. family is at bedside. noted with shallow breaths. kept comfortable , no seizure episode this shift. will continue to monitor. reported to am nurse.
[2018-11-30 09:05] VITALS: BP 104/37
[2018-11-30] MEDS: LEVETIRACETAM IV 500 MG in IV DEXTROSE 5% 100 ML IV SCH ×2 (09:05→21:35)
[2018-11-30] MEDS: POTASSIUM CHLORIDE 50 ML IV SCH ×2 (10:48→11:50)
[2018-11-30 12:00] VITALS: BP 122/86
[2018-11-30 16:00] VITALS: BP 130/81
--- NOTE | 2018-11-30 18:17 | NUR ---
patient laying in bed . morphine titrated to 10mg/hr. pupils pinpoint. Family at bedside. patient has shallow breaths, comfort measures provided. no seizures during shift.
--- NOTE | 2018-11-30 19:30 | NUR ---
Received patient asleep in bed, appears comfortable, not in any form of acute distress. With oxygen support at 2 lpm via nasal cannula. Noted with PICC line on the left upper arm, to ongoing morphine drip at 10mls/hr, infusing well. Still with grover catheter to urine bag. With air mattress in place. DVT pumps in place. Noted family member present at bedside. Noted patient now comfort measures only. Will continue to monitor and ensure patient comfort. Noise and lights subdued.
[2018-12-01] MEDS: PIPERACILLIN/TAZOBACTAM/D5W 3.375 G in PREMIXED 1 EACH IV SCH (05:28)
--- NOTE | 2018-12-01 06:54 | NUR ---
Patient appears comfortable, still with oxygen support at 1lpm via nasal cannula. Still on morphine drip at 12mls/hr via PICC line at the left upper arm. Still with grover catheter, draining clear raphael urine. Oral care rendered. Turned to sides. Attended all needs. Ensured safety and comfort.
--- NOTE | 2018-12-01 07:10 | NUR ---
Received patient in bed laying comfortably, continue with oxygen support at 0.5 lpm via nasal cannula. Picc line on left upper arm. Continue on morphine drip at 12mls/hr via PICC line at the left upper arm. patient continues with grover catheter, provided safety and comfort at all times.
[2018-12-01] MEDS: LEVETIRACETAM IV 500 MG in IV DEXTROSE 5% 100 ML IV SCH ×2 (09:33→20:26)
[2018-12-01] MEDS ORDERED: LEVE500T9 IV (10:18)
[2018-12-01] MEDS ORDERED: [UNRECOGNIZED DRUG - CODE] IV (10:18)
[2018-12-01] MEDS ORDERED: PIPE3.379 IV (10:18)
[2018-12-01] MEDS ORDERED: ACET650S24 RC (10:18)
[2018-12-01 12:00] VITALS: BP 100/45
--- NOTE | 2018-12-01 12:30 | NUR ---
PATIENT ADMITTED TO HOSPICE ( [facility] [place]). DNR. COMFORT MEASURES ONLY. CALL [facility] FOR ANY CHANGES @ [phone]. D/C ZOSYN. NO LABS DRAWS. CONTINUE WITH ALL OTHER PREVIOUS MEDS ( MORPHINE, KEPPRA, ATIVAN, ACETAMINOPHEN (SUPPOSITORY) AND ZOFRAN). CONTINUE WITH CURRENT OXYGEN VIA NC @ 1-2 L/MIN FOR COMFORT. CONTINUE WITH SKIN MAINTENANCE TREATMENT. PER MD. NOTED AND CARRIED OUT.
[2018-12-01] MEDS: MORPHINE SULFATE PF IV DRIP 250 MG in IV DEXTROSE 5% 240 ML IV PRN ×2 (16:48→23:07)
--- NOTE | 2018-12-01 18:45 | NUR ---
seen patient moaning and groaning, increased morphine from 12ml/hr to 13ml/hr with 's permission and agreed.
--- NOTE | 2018-12-01 19:00 | NUR ---
Patient in bed laying comfortably, continue with oxygen support at 1 lpm via nasal cannula. Picc line on left upper arm. Continue on morphine drip at 13mls/hr via PICC line at the left upper arm. patient continues with grover catheter, provided safety and comfort at all times. kept clean and dry at all times. call lights within reached. will continue to monitor.
--- NOTE | 2018-12-01 19:20 | NUR ---
Received patient lying in bed. Appears comfortable at this time. Pale in appearance. Skin dry and cool to touch. In no acute distress. O2 at 2LPM via NC in place for comfort. Periods of apnea lasting 5-10 seconds. On Morphine drip 13ml/hr. Radial and pedal pulses present. Turn and reposition for comfort. Continue to monitor.
[2018-12-01 19:57] VITALS: BP 129/46
[2018-12-01] MEDS: ACETAMINOPHEN 650 MG SUPP.RECT RC PRN (20:32)
--- NOTE | 2018-12-01 23:05 | NUR ---
@2029 TEMP WAS 100.9F AXILLARY. TYLENOL SUPPOSITORY GIVEN @2031 AND COOLING MEASURES INITIATED @2199 TEMP WAS 98.8F AXILLARY. REPOSITIONED FOR COMFORT, NOTED WITH PERIODS OF APNEA/ GURGLING AND SOMETIMES WITH RESPIRATORY DISTRESS. ELEVATED HOB , AND TITRATED MORPHINE TO 14MG/HR. WILL CONTINUE TO MONITOR AND KEEP COMFORTABLE.
[2018-12-02 04:46] VITALS: BP 133/53
[2018-12-02] MEDS: MORPHINE SULFATE PF IV DRIP 250 MG in IV DEXTROSE 5% 240 ML IV PRN ×2 (06:31→11:27)
--- NOTE | 2018-12-02 06:56 | NUR ---
Patient appears to be comfortable. Kept comfortable all night. HOB is elevated , turned and repositioned, continues to have periods of apnea lasting to 10 to 15 seconds. No seizure episode noted at this time. Increased Morphine to 15mg/hr @0630 due to periods of respiratory distress. Continued cooling measures with ice packs under both arms for elevated temp. endorsed to AM shift.
[2018-12-02 08:00] VITALS: BP 146/69
--- NOTE | 2018-12-02 08:00 | NUR ---
PT RESTING IN BED. BREATHING APPEARS LABORED WITH INTERMITTENT PERIODS OF APNEA. PT ON NC @ 1 L/M WITH SATS OF 96%. PICC LINE IN GAURAV. MORPHINE DRIP CONTINUOUS AT 15 ML/HR. PT HAS A FLANAGAN CATHETER. FAMILY AT BEDSIDE. WILL CONTINUE TO MONITOR FOR SAFETY AND COMFORT.
[2018-12-02 08:03] VITALS: BP 146/61
[2018-12-02] MEDS: LEVETIRACETAM IV 500 MG in IV DEXTROSE 5% 100 ML IV SCH ×2 (09:09→21:30)
[2018-12-02 11:00] VITALS: BP 137/58
[2018-12-02] MEDS ORDERED: SCOPOLAMINE HYDROBROMIDE 1.5 MG PATCH TD SCH (11:45)
--- NOTE | 2018-12-02 12:00 | NUR ---
PT RESTING IN BED. LABORED BREATHING NOTED. PT ON 1 L/M 02 VIA N/C. PT TURNED AND REPOSITIONED. NO SEIZURES NOTED. MORPHINE DRIP INCREASED TO 16ML/HR DUE TO NOTED PERIODS OF RESPIRATORY DISTRESS. TEMPERATURE WNL. WILL CONTINUE TO MONITOR FOR SAFETY AND COMFORT.
[2018-12-02] MEDS: SCOPOLAMINE HYDROBROMIDE 1.5 MG PATCH TD SCH (12:43)
[2018-12-02 16:00] VITALS: BP 153/59
--- NOTE | 2018-12-02 16:30 | NUR ---
PT HAD 100.5 AXILLARY TEMP. COOLING MEASURES TAKEN. TYLENOL SUPP GIVEN.
[2018-12-02] MEDS: ACETAMINOPHEN 650 MG SUPP.RECT RC PRN (16:46)
--- NOTE | 2018-12-02 18:55 | NUR ---
PT RESTING IN BED. LABORED BREATHING NOTED. PT ON 1 L/M 02 VIA N/C. PT TURNED AND REPOSITIONED. NO SEIZURES NOTED. MORPHINE DRIP INCREASED TO 17ML/HR DUE TO NOTED PERIODS OF RESPIRATORY DISTRESS. WILL CONTINUE TO MONITOR FOR SAFETY AND COMFORT.
--- NOTE | 2018-12-02 19:30 | NUR ---
PT IN BED RESTING. ON CONTINUES MORPHINE DRIP @ 17ML/HR. FAMILY AT BEDSIDE. ON COMFORT MEASURES. WILL CONTINUE TO MONITOR.
[2018-12-02 19:44] VITALS: BP 148/56
--- NOTE | 2018-12-03 00:16 | NUR ---
Increased morphine from 17 to 18ml/hr for comfort. Will continue to monitor.
[2018-12-03 05:54] VITALS: BP 145/47
--- NOTE | 2018-12-03 06:00 | NUR ---
ON COMFORT MEASURES, CONTINUE ON MORPHINE DRIP, NOW ON 18ML/HR. RESTING AT THIS TIME, CAREGIVER AT BEDSIDE. TURNED AND REPOSITIONED FOR COMFORT, ORAL CARE DONE.
[2018-12-03] MEDS: LEVETIRACETAM IV 500 MG in IV DEXTROSE 5% 100 ML IV SCH (08:37)
--- NOTE | 2018-12-03 08:40 | NUR ---
PATIENT ON COMFORT MEASURES, INCREASED DOSE TO 19ML/HR BC PATIENT WAS DOING GRIMACING AND PER DAUGHTERS REQUEST. COMFORT MEASURES ONLY PATIENT SUCTIONED ABOUT 200 ML OUT , ORAL CARE IS DONE
[2018-12-03] MEDS: MORPHINE SULFATE PF IV DRIP 250 MG in IV DEXTROSE 5% 240 ML IV PRN (17:12)
[2018-12-03 17:36] VITALS: BP 147/53
--- NOTE | 2018-12-03 17:44 | NUR ---
PATIENT ON COMFORT MEASURES, INCREASED DOSE TO 20ML/HR BC PATIENT WAS DOING GRIMACING PATIENT SUCTIONED NEEDED, BED BATH IS DONE, URINE OUTPUT DARK YELLOW 400 ML OUT , ORAL CARE IS DONE SAFETY MAINTAINED
--- NOTE | 2018-12-03 19:30 | NUR ---
ROUNDS MADE PATIENT IN BED . ON COMFORT MEASURES ( HOSPICE ) .MORPHINE DRIP IN PROGRESS AT 20 ML/HR AND NO S/S OF PAIN . NO FACIAL GRIMACES NOTED AND BODY IS RELAX.02 AT 2 LITER /MIN . PATIENT FAMILY MEMBERS AT BEDSIDE ,QUESTION ANSWERED .
[2018-12-03 20:35] VITALS: BP 150/54
--- NOTE | 2018-12-03 22:30 | NUR ---
TURNED AND REPOSITION PATIENT ,ELEVATED UPPER AND LOWER EXTREMITIES WITH PILLOWS .HOB UP .ORAL CARE DONE SUCTION VIA MOUTH WITH THICK YELLOWISH SECRETIONS.02 USED VIA N/C AT 2 L /MIN .NO S/S/ OF PAIN NOTED .
--- NOTE | 2018-12-04 00:01 | NUR ---
suction via mouth and via nares . no s/s/ of pain .morphine drip in progress .patient on comfort measures . family at bedside .
--- NOTE | 2018-12-04 02:00 | NUR ---
ROUNDS MADE PATIENT IN BED SLEEPING NO S/S OF PAIN . MORPHINE DRIP IN PROGRESS .
--- NOTE | 2018-12-04 02:30 | NUR ---
ORAL CARE DONE AND SUCTION PATIENT MOUTH VIA YANKAUER PATIENT ABLE TO CLOSE MOUTH ND BITE THE YANKAUER .OPEN EYES AT TIMES .
[2018-12-04 05:01] VITALS: BP 146/53
[2018-12-04] MEDS: MORPHINE SULFATE PF IV DRIP 250 MG in IV DEXTROSE 5% 240 ML IV PRN ×2 (05:23→17:41)
[2018-12-04] MEDS: Z GUARD REMEDY PASTE 57 GM TUBE TOP PRN (05:47)
--- NOTE | 2018-12-04 08:00 | NUR ---
Obtunded, labored breathing, congested. Secretions suctioned nasal and oral. Patient bites yankuer Morphine drip at 20 mg 20ml/hr, max dose. Daughter at bedside, feels that patient is not comfortable and is requesting increase in the dose of Morphine drip.
--- NOTE | 2018-12-04 09:52 | NUR ---
Resting comfortably, no SOB. Family at bedside
[2018-12-04] MEDS: LORAZEPAM 2 MG/1 ML VIAL IV PRN ×2 (15:42→17:41)
--- NOTE | 2018-12-04 15:42 | NUR ---
Noted labored breathing. Ativan 1 mg IV given
--- NOTE | 2018-12-04 16:20 | NUR ---
Hospice Nurse Krysta seen patient with orders to titrate dose of Mophine. Rate increased to 21 mg 21ml/hr. Secretions suctioned nasal and orally
--- NOTE | 2018-12-04 18:07 | NUR ---
With labored breathing and congestion. New Morphine drip bag, rate increased to 22 mg at 22 ml/hr. Ativan 1 mg IV given. Secretions suctioned nasal and orally.
--- NOTE | 2018-12-04 19:50 | NUR ---
PATIENT EYES CLOSED BUT RESPONSE TO PAINFUL STIMULI. PATIENT WITH ON AND OFF LABOR BREATHING. PATIENT ON MORPHINE 22MG/HOUR FOR PAIN AND COMFORT. KEPT CLEAN AND DRY. CONT TO MONITOR.
--- NOTE | 2018-12-04 22:00 | NUR ---
PATIENT BREATHING IS BETTER, FACIAL EXPRESSION RELAX. CONT ON MORPHINE 22MG PER HOUR ORDERED. CONT TO MONITOR.
[2018-12-05] MEDS: LORAZEPAM 2 MG/1 ML VIAL IV PRN ×4 (05:42→23:25)
--- NOTE | 2018-12-05 05:49 | NUR ---
patient given ativan 1mg iv for comfort, patient breathing labored at this time. will cont to monitor.
[2018-12-05] MEDS: MORPHINE SULFATE PF IV DRIP 250 MG in IV DEXTROSE 5% 240 ML IV PRN ×2 (08:09→20:01)
[2018-12-05] MEDS: SCOPOLAMINE HYDROBROMIDE 1.5 MG PATCH TD SCH (09:15)
[2018-12-05 10:58] VITALS: BP 129/60
[2018-12-05 15:21] VITALS: BP 123/76
[2018-12-05 16:23] VITALS: BP 131/50
--- NOTE | 2018-12-05 19:10 | NUR ---
Patient calm and comfortable laying in bed given Ativan upon departure. Patient on continuos morphine drip.
[2018-12-05 19:39] VITALS: BP 154/71
--- NOTE | 2018-12-05 21:00 | NUR ---
PATIENT EYES CLOSED, WITH LABORED BREATHING NOTED, UNABLE TO ASSESS FOR PAIN, WILL MEDICATE FOR LABORED BREATHING ORDERED.
--- NOTE | 2018-12-05 23:00 | NUR ---
PATIENT STILL HAVE LABORED BREATHING, WILL CONTINUE TO MEDICATE FOR LABORED BREATHING AND COMFORT ORDERED.
--- NOTE | 2018-12-06 01:00 | NUR ---
PATIENT EYES CLOSED, UNABLE TO ASSESS FOR PAIN, WITH CONTINOUS LABORED BREATHING WILL CONTINUE TO MEDICATED ORDERED.
[2018-12-06] MEDS: LORAZEPAM 2 MG/1 ML VIAL IV PRN ×7 (01:20→18:37)
--- NOTE | 2018-12-06 03:00 | NUR ---
PATIENT EYES CLOSED, PATIENT HAS SHALLOW BREATHING AT THIS TIME BUT STILL LABORED, PATIENT MEDICATED ORDERED, KEPT COMFORTABLE.
[2018-12-06 04:18] VITALS: BP 112/72
--- NOTE | 2018-12-06 05:00 | NUR ---
PATIENT EYES CLOSED, AND STILL HAS SHALLOW LABORED BREATHING, GIVEN ATIVAN ORDERED FOR COMFORT/LABORED BREATHING. CONT TO MONITOR.
[2018-12-06] MEDS: MORPHINE SULFATE PF IV DRIP 250 MG in IV DEXTROSE 5% 240 ML IV PRN ×2 (08:30→19:34)
[2018-12-06 15:42] VITALS: BP 142/55
--- NOTE | 2018-12-06 19:20 | NUR ---
Received patient lying in bed. Appears comfortable. Pale in appearance. Skin dry and warm to touch. In no acute distress. O2 at 5LPM via NC in place for comfort. PICC line on right upper arm. On Morphine drip 25ml/hr. Radial and pedal pulses present. FC intact and patent. Reposition for comfort. Private disabilities caregiver on bedside. Continue to monitor. Addendum: 12/06/18 at 2135 by DANO SHERIFF RN PICC line left upper arm.
[2018-12-06 20:26] VITALS: BP 130/56
[2018-12-07 05:12] VITALS: BP 130/52
--- NOTE | 2018-12-07 06:12 | NUR ---
PATIENT APPEARS COMFORTABLE. NO SIGNS OR SYMPTOMS OF PAIN NOTED. SHALLOW AND MOUTH BREATHING. ORAL CARE PROVIDED. ON O2 AT 5LPM VIA NC IN PLACE. SEIZURE PRECAUTION MAINTAINED. PICC LINE ON LEFT UPPER ARM INTACT AND PATENT. MORPHINE DRIP ONGOING AT 25CC/HR. FLANAGAN CATHETER INTACT AND DRAINING VIA GRAVITY. URINE BRENDA IN COLOR. TURN AND REPOSITION FOR COMFORT. CONTINUE TO MONITOR. PRIVATE CAREGIVER ON BEDSIDE.
[2018-12-07] MEDS: LORAZEPAM 2 MG/1 ML VIAL IV PRN ×2 (06:46→13:08)
[2018-12-07] MEDS: MORPHINE SULFATE PF IV DRIP 250 MG in IV DEXTROSE 5% 240 ML IV PRN ×2 (06:46→16:05)
--- NOTE | 2018-12-07 07:40 | NUR ---
report received from Liliana JAY. 78 yr old female was admitted on 11/21/18 for seizure, now on comfert measures only, now on Morphine drip at 25mg/hr via PICC line GAURAV. on o2 5lnc. grover catheter intact. caregiver at the bedside Addendum: 12/07/18 at 0741 by DC CASTELAN RN Amended: Links added.
--- NOTE | 2018-12-07 10:34 | NUR ---
am care done with SWAPNIL Vera. Patient jaundiced and edematous. no skin breakdown noted.. Addendum: 12/07/18 at 1046 by DC CASTELAN RN Amended: Links added. Addendum: 12/07/18 at 1049 by DC CASTELAN RN Amended: Links added.
--- NOTE | 2018-12-07 10:48 | NUR ---
family verbalized we are hydrating the patient with the Morphine drip and family suggested we give thwe Morphine sublingually. advised will discuss concern with the physician. Addendum: 12/07/18 at 1049 by DC CASTELAN RN Amended: Links added.
[2018-12-07 15:00] VITALS: BP 82/35
--- NOTE | 2018-12-07 15:41 | NUR ---
family here to spend time with the patient. remains on Morphine drip at 25mg/min. oral care done for dried mucus plugs. rr markedly diminished. bp 80/30. o2 at 2 liters nasal cannula. family is aware of patient's status Addendum: 12/07/18 at 1544 by DC CASTELAN RN Amended: Links added.
--- NOTE | 2018-12-07 15:44 | NUR ---
family here to spend time with the patient. remains on Morphine drip at 25mg/min. oral care done for dried mucus plugs. rr markedly diminished. bp 80/30. o2 at 2 liters nasal cannula. family is aware of patient's status Addendum: 12/07/18 at 1544 by DC CASTELAN RN Amended: Links added. Addendum: 12/07/18 at 1545 by DC CASTELAN RN duplicated entry
--- NOTE | 2018-12-07 19:30 | NUR ---
Received patient in bed, appears comfortable. Labored breathing noted with RR 3-4. No distress noted. Family is at bedside. Patient is on Morphine drip at 25mg/hr. Skin is pale and dry to touch. Will provide oral care as needed. Will turn and reposition patient. Will continue to monitor. Addendum: 12/07/18 at 2203 by HERNAN ORTEGA RN Morphine drip at 25ml/hr with PICC line in [facility].
--- NOTE | 2018-12-07 19:42 | NUR ---
report given to pms Addendum: 12/07/18 at 1942 by CD CASTELAN RN Amended: Links added.
[2018-12-07 20:52] VITALS: BP 62/28
[2018-12-08] MEDS: LORAZEPAM 2 MG/1 ML VIAL IV PRN ×2 (00:13→06:37)
--- NOTE | 2018-12-08 00:19 | NUR ---
Patient noted with labored, gasping breathing. Gave PRN Ativan. Will continue to monitor.
[2018-12-08] MEDS: MORPHINE SULFATE PF IV DRIP 250 MG in IV DEXTROSE 5% 240 ML IV PRN (02:27)
[2018-12-08 06:48] VITALS: BP 101/42
--- NOTE | 2018-12-08 07:32 | NUR ---
report received from Adelaida Petty RN RN. 78 yr old female was admitted on 11/21/18 for seizure, now on comfort measures only, also had been on Morphine drip at 25mg/hr via PICC line GAURAV. on o2 2lnc. grover catheter intact. family member at the bedside. appears comfortable at present Addendum: 12/08/18 at 0734 by DC CASTELAN RN Amended: Links added.
== END 2018-12-01 10:25 | disposition hospice, inpatient (51) | DRG 871 ==
LOC: ER 13:25 → TELE-TD3 16:17 → MEDSURG3 11-25 17:07 → TELE3 11-27 10:11 → MED 11-29 18:10 → MEDSURG3 11-29 19:11 → HOSPICE3 12-01 11:55 → MEDSURG3 12-01 11:55
PROVIDERS: ADMIT Internal Medicine; ATTEND Internal Medicine
PROC: 05HY33Z Insertion of Infusion Device into Upper Vein, Percutaneous Approach (ICD-10-PCS; principal; 2018-11-22)
DX: A41.9 Sepsis, unspecified organism (principal); G93.41 Metabolic encephalopathy; I21.4 Non-ST elevation (NSTEMI) myocardial infarction; I63.432 Cerebral infarction due to embolism of left posterior cerebral artery; R40.2222 Coma scale, best verbal response, incomprehensible words, at arrival to emergency department; R40.2342 Coma scale, best motor response, flexion withdrawal, at arrival to emergency department; R40.2122 Coma scale, eyes open, to pain, at arrival to emergency department; I61.8 Other nontraumatic intracerebral hemorrhage; J69.0 Pneumonitis due to inhalation of food and vomit; I61.5 Nontraumatic intracerebral hemorrhage, intraventricular; G93.6 Cerebral edema; N39.0 Urinary tract infection, site not specified; E87.2 Acidosis; D68.59 Other primary thrombophilia; Z51.5 Encounter for palliative care; Z66 Do not resuscitate; Z91.19 Patient's noncompliance with other medical treatment and regimen; R65.20 Severe sepsis without septic shock; E03.9 Hypothyroidism, unspecified; G40.409 Other generalized epilepsy and epileptic syndromes, not intractable, without status epilepticus; G30.9 Alzheimer's disease, unspecified; F02.80 Dementia in other diseases classified elsewhere, unspecified severity, without behavioral disturbance, psychotic disturbance, mood disturbance, and anxiety; Z85.038 Personal history of other malignant neoplasm of large intestine; E86.0 Dehydration; R56.9 Unspecified convulsions; E87.6 Hypokalemia; Z79.890 Hormone replacement therapy; Z87.891 Personal history of nicotine dependence; Z74.01 Bed confinement status; I69.321 Dysphasia following cerebral infarction; M21.372 Foot drop, left foot; M21.371 Foot drop, right foot; D69.6 Thrombocytopenia, unspecified; M48.02 Spinal stenosis, cervical region
CPT/HCPCS: 36415; 36569; 70030-TC; 70450; 70551; 71045; 72125; 83605; 83735; 84100; 84132; 84443; 84478; 85025; 85730; 87040; 87086; 93005; 93307; 95819; A4663; G0378; J0696; J1644; J1815; J1953; J2060; J2274; J2543; J3370; J3475; J3480; J3490; J7030; J7050; J7060

== ENCOUNTER 2018-12-01 10:26 | Inpatient (IN) | payer OTHER ==
[~2018-12-01] VITALS: Ht 152.4 cm; Wt 68.5 kg
[~2018-12-01 10:26] MED LIST changes: +ACET650S24 RC; +CHOL200078 PO; -HYDR-3326 PO; +LEVE500T9 IV; -LEVO100T PO; +LEVO75TA PO; -OMEG1CAP PO; +PIPE3.379 IV; +QUET100T PO; +[UNRECOGNIZED DRUG - CODE] IV
[2018-12-08 08:11] VITALS: BP 92/37
[2018-12-08] MEDS ORDERED: MORPHINE SULFATE PF IV DRIP 250 MG in IV DEXTROSE 5% 240 ML IV PRN (08:15)
[2018-12-08] MEDS: ACETAMINOPHEN 650 MG SUPP.RECT RC PRN ×2 (08:28→15:47)
[2018-12-08] MEDS: LORAZEPAM 2 MG/1 ML VIAL IV PRN ×2 (08:28→14:30)
[2018-12-08] MEDS ORDERED: SCOPOLAMINE HYDROBROMIDE 1.5 MG PATCH TD SCH (09:00)
[2018-12-08] MEDS: MORPHINE SULFATE PF IV DRIP 250 MG in IV DEXTROSE 5% 240 ML IV PRN ×5 (10:05→22:00)
[2018-12-08 11:30] VITALS: BP 92/37
[2018-12-08 15:40] VITALS: BP 92/37
[2018-12-08 15:58] VITALS: BP 108/44
[2018-12-08 20:50] VITALS: BP 106/43
[2018-12-09 06:54] VITALS: BP 117/52
[2018-12-09] MEDS: MORPHINE SULFATE PF IV DRIP 250 MG in IV DEXTROSE 5% 240 ML IV PRN (08:23)
[2018-12-09] MEDS: LORAZEPAM 2 MG/1 ML VIAL IV PRN ×2 (09:43→11:52)
[2018-12-09 11:05] VITALS: BP 169/72
== END 2018-12-09 13:16 | disposition expired | DRG 64 ==
LOC: HOSPICE3 10:26
PROVIDERS: ADMIT Internal Medicine; ATTEND Internal Medicine
DX: I62.9 Nontraumatic intracranial hemorrhage, unspecified (principal); A41.9 Sepsis, unspecified organism; J69.0 Pneumonitis due to inhalation of food and vomit; I21.A1 Myocardial infarction type 2; G92 Toxic encephalopathy; G93.6 Cerebral edema; D68.59 Other primary thrombophilia; G81.04 Flaccid hemiplegia affecting left nondominant side; Z51.5 Encounter for palliative care; Z66 Do not resuscitate; G40.909 Epilepsy, unspecified, not intractable, without status epilepticus; G30.9 Alzheimer's disease, unspecified; F02.80 Dementia in other diseases classified elsewhere, unspecified severity, without behavioral disturbance, psychotic disturbance, mood disturbance, and anxiety; Z74.01 Bed confinement status; R47.02 Dysphasia; E03.9 Hypothyroidism, unspecified
CPT/HCPCS: G0378; J2060; J2274; J7060